=== PATIENT | female | born 2000 | race African-American/Black ===

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

== ENCOUNTER 2021-11-05 18:39 | Emergency (ER) | payer OTHER ==
[2021-11-05 19:11] VITALS: BP 110/73; PULSE 88; TEMP 98; BMI 23.3
[2021-11-05] MEDS ORDERED: ACETAMINOPHEN 500 MG TABLET (FP) PO ONE (19:47)
[2021-11-05] MEDS ORDERED: ACETAMINOPHEN 500 MG TABLET (FP) ONE (19:51)
== END 2021-11-05 20:30 | disposition home or self-care (01) ==
LOC: JER 18:39
DX: U07.1 COVID-19 (principal)
CPT/HCPCS: 0241U-QW; 99284-25